=== PATIENT | female | born 1965 | race African-American/Black ===

== ENCOUNTER 2017-04-20 14:50 | Emergency (ER) | payer MEDICARE ==
[2017-04-20 15:16] LABS: #Lymphocytes 1.1 thou/uL (1.20-3.40); #Monocytes 0.4 thou/uL (0.11-0.59); #Neutrophils 1.7 thou/uL (1.40-6.50); %Basophils 0.5 % (0.0-1.0); %Eosinophils 0.5 % (0.0-10.0); %Lymphocytes 34.8 % (21.0-51.0); %Monocytes 13.2 % (0.0-10.0); Hemoglobin 12.8 g/dL (12.0-16.0); Mean Corpuscular HGB CONC 32.6 g/dL (32.0-36.0); Platelet Count 142 thou/uL (130-400); RBC Distribution Width 12.3 % (11.5-14.5); Red Blood Cell (RBC) Count 4.43 mill/uL (4.20-5.40); White Blood Cell (WBC) Count 3.3 thou/uL (4.8-10.8)
--- NOTE | 2017-04-20 15:32 | RAD ---
FRONTAL VIEW CHEST: Comparison: 04-03-16 Indication: Chest pain. FINDINGS: Cardiac silhouette is stable. Left sided AICD is again seen. There is patchy bilateral perihilar opac ification which may be on the basis of edema. No significant effusion or discrete pneumothorax. IMPRESSION: Findings favoring a mild degree of edema, that may reflect changes of CHF. Correlate clinically. POS: [facility]
[2017-04-20 15:37] LABS: ALT (SGPT) 18 U/L (8-55); AST (SGOT) 35 U/L (5-34); Alkaline Phosphatase 80 U/L (40-150); Anion Gap 13 mmol/L (10-20); BUN (Urea Nitrogen) 11 mg/dL (9.8-20.1); Bilirubin, Total 0.3 mg/dL (0.2-1.2); CK (CPK) 762 U/L (29-168); Calc. Creatinine Clearance 0 mL/min (70-130); Calcium 9.5 mg/dL (7.8-10.44); Carbon Dioxide 27 mmol/L (22-29); Chloride 99 mmol/L (98-107); Estimated GFR-MDRD 75; Globulin 3.6 g/dL (2.4-3.5); Glucose 125 mg/dL (70-105); Lipase 20 U/L (8-78); Potassium 4.2 mmol/L (3.5-5.1); Protein, Total 7.6 g/dL (6.0-8.3); Sodium 135 mmol/L (136-145)
[2017-04-20 15:42] LABS: CKMB 1.3 ng/mL (0-6.6); Troponin I 0.022 ng/mL (< 0.028)
[2017-04-20] MEDS ORDERED: predniSONE 20 MG TAB ONE (16:17)
[2017-04-20] MEDS ORDERED: Furosemide 40 MG/4 ML VIAL ONE (16:17)
[2017-04-20] MEDS ORDERED: Albuterol Sulfate 2.5 mg/0.5 ml Neb ONE (16:29)
[2017-04-20] MEDS ORDERED: Albuterol Sulfate 2.5 mg/3 ml Neb ONE (16:29)
[2017-04-20] MEDS ORDERED: Acetaminophen 500 MG TAB ONE (17:30)
[2017-04-20] MEDS ORDERED: Ketorolac Tromethamine 30 MG/ML VIAL ONE (17:58)
== END 2017-04-20 18:38 | disposition home or self-care (01) ==
LOC: ERS 14:50
DX: J10.1 Influenza due to other identified influenza virus with other respiratory manifestations (principal); I50.9 Heart failure, unspecified; I10 Essential (primary) hypertension; J45.909 Unspecified asthma, uncomplicated; F41.9 Anxiety disorder, unspecified; F17.210 Nicotine dependence, cigarettes, uncomplicated; Z79.899 Other long term (current) drug therapy; Z79.84 Long term (current) use of oral hypoglycemic drugs
CPT/HCPCS: 71045; 80053; 82553; 83690; 83880; 84484; 85025; 93005; 94640; 94760; 96372; 96374; 99406; J1885; J1940; J7506; J7611

== ENCOUNTER 2018-01-05 12:29 | Emergency (ER) | payer MEDICARE | END 2018-01-05 13:12 | disposition home or self-care (01) | LOC: ERS 12:29 | DX: J39.2 Other diseases of pharynx (principal); I11.0 Hypertensive heart disease with heart failure; I50.9 Heart failure, unspecified; J44.9 Chronic obstructive pulmonary disease, unspecified; F41.9 Anxiety disorder, unspecified; F17.210 Nicotine dependence, cigarettes, uncomplicated; Z79.899 Other long term (current) drug therapy; Z79.84 Long term (current) use of oral hypoglycemic drugs | CPT/HCPCS: 99283 ==

== ENCOUNTER 2018-02-06 16:11 | Outpatient (CLI) | payer MEDICARE | END 2018-02-06 16:12 | disposition home or self-care (01) | LOC: BICMAMMO 16:11 | PROVIDERS: ATTEND Family Medicine | DX: Z12.31 Encounter for screening mammogram for malignant neoplasm of breast (principal); Z85.3 Personal history of malignant neoplasm of breast; Z80.3 Family history of malignant neoplasm of breast | CPT/HCPCS: 77063; 77067 ==

== ENCOUNTER 2018-07-11 08:23 | Observation (INO) | payer MEDICARE ==
--- NOTE | 2018-07-11 08:50 | RAD ---
EXAM: Chest Two Views 07/11/2018 8:46 AM HISTORY: Chest pain COMPARISON: February 11, 2012 FINDINGS: Heart: Normal in size and contour. Pulmonary vessels: Normal. Costophrenic angles: Clear. Lungs: There is patchy airspace opacity within the left lower lobe suspicious for pneumonia. Right becca ng is clear. Pneumothorax: None. Osseous structures:Intact. Additional findings: None. IMPRESSION: Patchy airspace opacity within the left lower lobe. Findings suspicious for pneumonia. Recommend radi ographic follow-up to resolution.
[2018-07-11 09:13] LABS: ALT (SGPT) 7 U/L (8-55); AST (SGOT) 8 U/L (5-34); Albumin 3.9 g/dL (3.5-5.0); Alkaline Phosphatase 110 U/L (40-150); Anion Gap 11 mmol/L (10-20); BUN (Urea Nitrogen) 10 mg/dL (9.8-20.1); Bilirubin, Total 0.4 mg/dL (0.2-1.2); CK (CPK) 68 U/L (29-168); Calc. Creatinine Clearance 0 mL/min (70-130); Calcium 9.7 mg/dL (7.8-10.44); Carbon Dioxide 29 mmol/L (22-29); Chloride 103 mmol/L (98-107); Estimated GFR-MDRD 86; Globulin 2.9 g/dL (2.4-3.5); Glucose 156 mg/dL (70-105); Potassium 4.2 mmol/L (3.5-5.1); Protein, Total 6.8 g/dL (6.0-8.3); Sodium 139 mmol/L (136-145)
[2018-07-11 09:14] LABS: #Basophils 0.1 thou/uL (0.0-0.2); #Eosinphils 0.2 thou/uL (0.0-0.7); #Lymphocytes 2.1 thou/uL (1.20-3.40); #Monocytes 0.4 thou/uL (0.11-0.59); #Neutrophils 2.7 thou/uL (1.40-6.50); %Basophils 1.1 % (0.0-1.0); %Eosinophils 3.6 % (0.0-10.0); %Lymphocytes 39.3 % (21.0-51.0); %Monocytes 6.4 % (0.0-10.0); %Neutrophils 49.5 % (42.0-75.0); Hemoglobin 12.2 g/dL (12.0-16.0); Mean Corpuscular HGB CONC 31.5 g/dL (32.0-36.0); Mean Corpuscular Hemoglobin 27.5 pg (27.0-31.0); Mean Corpuscular Volume 87.5 fL (78.0-98.0); Mean Platelet Volume 8.1 fL (7.4-10.4); Platelet Count 207 thou/uL (130-400); RBC Distribution Width 12.2 % (11.5-14.5); Red Blood Cell (RBC) Count 4.45 mill/uL (4.20-5.40); White Blood Cell (WBC) Count 5.4 thou/uL (4.8-10.8)
[2018-07-11] MEDS ORDERED: Aspirin Chewable 81 MG TAB ONE (09:43)
[2018-07-11] MEDS ORDERED: Morphine 4 MG/ML VIAL ONE (10:04)
[2018-07-11] MEDS ORDERED: hydrALAZINE 20 MG/ML VIAL SLOW IVP PRN (10:09)
[2018-07-11] MEDS ORDERED: Benzonatate 100 MG CAP PO PRN (10:09)
[2018-07-11] MEDS ORDERED: Bisacodyl 5 MG TAB PO PRN (10:09)
[2018-07-11] MEDS ORDERED: Calcium Carbonate 500 MG ChewTAB PO PRN (10:09)
[2018-07-11] MEDS ORDERED: Senokot S 8.6-50 MG TAB PO PRN (10:09)
[2018-07-11] MEDS ORDERED: Nitroglycerin 0.4 MG TAB (25 Tab Bottle) SL PRN (10:09)
[2018-07-11] MEDS ORDERED: Acetaminophen 325 MG TAB PO PRN (10:09)
[2018-07-11] MEDS ORDERED: HYDROcodone/Acetaminophen 5/325 mg Tablet PO PRN (10:09)
[2018-07-11] MEDS ORDERED: cloNIDine 0.1 MG TAB PO PRN (10:09)
[2018-07-11] MEDS ORDERED: Ondansetron PF 4 MG/2 ML Vial IVP PRN (10:09)
[2018-07-11] MEDS ORDERED: cefTRIAXone\\ROCEPHIN 1 GM VIAL ONE (10:13)
[2018-07-11] MEDS ORDERED: Azithromycin 500 MG VIAL ONE (10:13)
[2018-07-11] MEDS ORDERED: Sodium Chloride 0.9% 1,000 ML IV SCH (10:15)
[2018-07-11] MEDS ORDERED: Dextrose 5% in Water 1,000 ML IV PRN (10:18)
[2018-07-11] MEDS ORDERED: HumaLOG 300 UNITS/3 ML VIAL SC PRN ×2 (10:18)
[2018-07-11] MEDS ORDERED: Dextrose 50% Abboject 50 ML SYRINGE SLOW IVP PRN (10:18)
[2018-07-11 10:44] LABS: Bilirubin Small (Negative); Blood, Urine Negative (Negative); Clarity CLEAR (Clear); Glucose, Urine (Dipstick) Negative (Negative); Leukocyte Negative (Negative); Nitrite Negative (Negative); Protein, Urine (Dipstick) Trace mg/dL (Neg-Trace); Specific Gravity, Urine 1.027 (1.002-1.036)
[2018-07-11 10:47] LABS: Cardiac Risk 5.1 (Less than 4.5)
[2018-07-11] MEDS ORDERED: Furosemide 40 MG/4 ML VIAL SLOW IVP SCH (11:00)
[2018-07-11] MEDS ORDERED: Carvedilol 25 MG TAB PO SCH (11:00)
[2018-07-11 12:05] LABS: Troponin I Less than 0.010 ng/mL (< 0.028)
--- NOTE | 2018-07-11 12:20 | HP ---
PRIMARY CARE PHYSICIAN: Dr. Chavez. CHIEF COMPLAINT: Generalized malaise, weakness, chest pain, dysuria, frequency, as well as exertional mild shortness of breath, and shoulder pain. HISTORY OF PRESENTING ILLNESS: Ms. Devine is a pleasant 52-year-old female with past medical history of nonischemic cardiomyopathy, status post AICD placement, as well as history of asthma and chronic systolic heart failure and hypertension and history of breast cancer, who presented to the emergency room with above-mentioned complaint. History is mainly obtained by the patient herself and electronic medical records have been reviewed. Case has been discussed with admitting ER physician, Dr. Alberto. Ms. Devine reports that for the last week or so, she has been not feeling herself. She has been experiencing some generalized malaise and started to have some chest discomfort last 2 days ago. She has also been experiencing some shortness of breath associated with it as well as nausea and cough. She also started to have some shoulder pain bilaterally yesterday. She follows up with Dr. Becerra yearly and has had a stress test last year. She denies any sick contacts, but one of her grandson had a strep throat multiple weeks ago. She also complains of pain with micturition and frequency. She denies any specific smell or color to her urine. She denies any specific complaints of vomiting or diarrhea or abdominal pain. She does complain of some pain on both of her sides in the lower back coming to her front somewhat. Upon presentation to the emergency room, she was hemodynamically stable. Blood pressure 140/90, respirations 14, temperature 98.2, pulse of 60, saturating 100% on room air. She had a 12-lead EKG done, which shows chronic T-wave inversions in lead IV without any acute changes. Her chest x-ray, however, was suggestive of left lower lobe infiltrate. Cardiac enzymes were done and troponin was less than 0.010. BNP was normal. She is now being admitted for ACS rule out and treatment for the pneumonia. There is no evidence of sepsis. PAST MEDICAL HISTORY: 1. Nonischemic cardiomyopathy, status post AICD placement. Reported EF around 15% to 20%. 2. History of reactive chronic bronchitis versus asthma. 3. History of chronic systolic congestive heart failure. 4. Hypertension. 5. History of breast cancer. PAST SURGICAL HISTORY: 1. Left lumpectomy. 2. Lymph node removal from left arm. 3. Defibrillator placement. 4. Cardiac catheterization. 5. MediPort placement and removal. 6. Tubal ligation. PAST PSYCHIATRIC HISTORY: Anxiety disorder. SOCIAL HISTORY: No history of drug, tobacco, or alcohol abuse. FAMILY HISTORY: No significant family history of coronary artery disease, stroke, or cancer. ALLERGIES: NO KNOWN MEDICATION ALLERGIES. HOME MEDICATIONS: As listed in the ER records; 1. Carvedilol 25 mg p.o. b.i.d. 2. Lisinopril 20 mg p.o. b.i.d. 3. Lasix 40 mg daily. 4. Advair. 5. Albuterol. 6. Metformin 500 p.o. b.i.d. 7. Carafate unknown dose. 8. Protonix 40 mg p.o. b.i.d. REVIEW OF SYSTEMS: A 14-point review of system is done. It is negative except for those mentioned in the history and physical. LABORATORY DATA: Her CBC is unremarkable. Serum chemistry unremarkable. Blood sugar 156. Troponin less than 0.010. Creatine kinase normal. BNP normal. Lipid panel normal. Urinalysis shows small bilirubin, otherwise negative for leukocyte esterase. Chest x-ray by my review shows a small left lower lobe density, possibly infiltrate without any edema. A 12-lead EKG by my review shows normal sinus rhythm with normal ST segments and T-waves inverted in leads V4. Heart rate 71 beats per minute. PHYSICAL EXAMINATION: VITAL SIGNS: Most recent vital signs; blood pressure 140/87, pulse of 67, respirations 16, saturating 100% on room air, temperature 98.2. GENERAL: No acute distress. Awake, alert, and oriented x3. HEENT: Mucous membrane is moist and pink. No oropharyngeal exudate or erythema. Head is normocephalic and atraumatic. Pupils are equal and reactive to light and accommodation. Extraocular movement intact. NECK: Supple without any lymphadenopathy, JVD, or bruit. CHEST: Clear to auscultation without any wheezing, rales, or rhonchi. HEART: Rate and rhythm are regular without any murmurs, rubs, or gallops. ABDOMEN: Soft, nontender, nondistended with positive bowel sounds. EXTREMITIES: Free of any cyanosis, clubbing, or edema. She does have some varicose vein in legs and is wearing compression stockings. NEUROLOGICAL: Nonfocal. SKIN: Free of any rashes or bruises. Feels warm and dry to touch. PSYCHIATRIC: Normal affect. IMPRESSION AND PLAN: 1. Left lower lobe pneumonia, most likely this is the reason for the patient's chest pain also. She was given Rocephin and azithromycin in the emergency room. She is not hypoxic. We will continue the antibiotics for now and add supportive care in the form of nebulizers as needed as well as Mucinex b.i.d. and incentive spirometry. The patient has no evidence to suggest sepsis. 2. Chest pain. This is most likely secondary to #1. However, given the patient's extensive cardiac history, we will obtain a nuclear medicine stress test and continue to trend serial cardiac enzymes. AICD would also be interrogated. 3. Diabetes mellitus. The patient is non-insulin dependent. At this time, we will hold the metformin to avoid acidosis or renal injury. We will add insulin sliding scale with frequent Accu-Cheks. 4. Hypertension. We will restart Coreg 25 b.i.d., lisinopril 20 mg b.i.d., though the dose is not confirmed, as well as continuation of Lasix 40 mg p.o. daily. 5. Chronic systolic congestive heart failure. She is stable and compensated. We will restart medications including beta benjamin, EVERETTE inhibitor, and Lasix. She [facility] with [facility] in the outpatient setting. 6. Nonischemic cardiomyopathy, status post AICD placement, stable. We will restart her EVERETTE inhibitor, beta blockers, and Lasix. 7. History of bronchitis and/or asthma. Resume Advair and add nebulizers as needed. Appears stable at this time. 8. Add DVT and GI prophylaxis. DISPOSITION: Ms. Devine is currently being admitted for chest pain workup and treatment for pneumonia. ACS will be ruled out. Estimated length of stay at this time is less than two midnights. Further management will depend upon her clinical course. Job ID: [id number]
[2018-07-11 15:04] LABS: Troponin I Less than 0.010 ng/mL (< 0.028)
[2018-07-11 17:18] VITALS: BMI 34.4
[2018-07-11] MEDS: Carvedilol 25 MG TAB PO SCH (17:46)
[2018-07-11] MEDS: Mometasone/Formoterol 120 PUFF INHALER INH SCH ×2 (17:55→19:13)
[2018-07-11] MEDS: Famotidine/PF 20 mg/2ml Vial SLOW IVP SCH (19:52)
[2018-07-11] MEDS: guaiFENesin ER 600 MG TAB PO SCH (19:52)
[2018-07-12] MEDS: Mometasone/Formoterol 120 PUFF INHALER INH SCH (06:31)
[2018-07-12] MEDS ORDERED: cefTRIAXone\\ROCEPHIN 1 GM in Sodium Chloride 0.9% 100 ML IVPB SCH (07:00)
[2018-07-12 07:12] LABS: Anion Gap 11 mmol/L (10-20); BUN (Urea Nitrogen) 12 mg/dL (9.8-20.1); Calc. Creatinine Clearance 151 mL/min (70-130); Calcium 9.3 mg/dL (7.8-10.44); Carbon Dioxide 29 mmol/L (22-29); Chloride 103 mmol/L (98-107); Estimated GFR-MDRD Greater than 90; Glucose 126 mg/dL (70-105); Potassium 4.3 mmol/L (3.5-5.1); Sodium 139 mmol/L (136-145)
[2018-07-12] MEDS ORDERED: Furosemide 40 MG TAB PO SCH (07:30)
[2018-07-12] MEDS ORDERED: Aspirin 325 mg Enteric Coated Tablet PO SCH (09:00)
[2018-07-12] MEDS ORDERED: Regadenoson 0.4 MG/5 ML SYRINGE ONE (11:23)
[2018-07-12] MEDS: Azithromycin 500 MG in Sodium Chloride 0.9% 250 ML 250 ML IVPB SCH ×2 (11:38→11:54)
[2018-07-12] MEDS: Enoxaparin Sodium 40 MG/0.4 ML SYRINGE SC SCH ×2 (11:39→11:55)
[2018-07-12] MEDS: guaiFENesin ER 600 MG TAB PO SCH (11:39)
[2018-07-12] MEDS: Famotidine/PF 20 mg/2ml Vial SLOW IVP SCH (11:39)
[2018-07-12] MEDS: Carvedilol 25 MG TAB PO SCH (11:47)
--- NOTE | 2018-07-12 11:51 | NM ---
EXAM: Nuclear medicine cardiac SPECT with EF and wall motion: HISTORY: Chest pain Protocol: Exam was performed using Lexiscan protocol. Patient was injected with 32.0 mCi technetium 99m sestamibi intravenously for stress images. Patient was injected with 27.0 mCi technetium 99m sestamibi intravenously for resting images. Multiple SPECT images are performed in the short axis, vertical long axis, and horizontal long axis. FINDINGS: No scan evidence for infarct or ischemia. TID:1.07 LHR:0.35 EDV:217 mL EF:42% Wall motion:Mild hypokinesis IMPRESSION: No scan evidence for infarct or ischemia. Elevated EDV. Ejection fraction 42%. Very mild generalized hypokinesis.
[2018-07-12 11:53] VITALS: BP 145/80; TEMP 98.3
[2018-07-12] MEDS ORDERED: Doxycycline 100 MG CAP PO SCH ×2 (12:30→21:00)
--- NOTE | 2018-07-12 22:34 | DIS ---
DATE OF ADMISSION: 07/11/2018 DATE OF DISCHARGE: 07/12/2018 DISCHARGE DISPOSITION: Home. FOLLOWUP: 1. Follow up with primary care physician, Dr. Chavez, in 1 week. 2. Follow up with Dr. Noé Becerra as scheduled. ALLERGIES: NO KNOWN DRUG ALLERGIES. THE PATIENT WAS SEEN AND EXAMINED ON THE DAY OF DISCHARGE. DENIES ANY NEW COMPLAINTS. NO CHEST PAIN, SHORTNESS OF BREATH, OR PALPITATIONS REPORTED. OVERALL, SYMPTOMATICALLY, SHE FEELS MUCH BETTER. DISCHARGE MEDICATIONS: 1. Omnicef 300 mg b.i.d. for 1 week. 2. Doxycycline 100 mg b.i.d. for 1 week. 3. Protonix 40 mg daily. 4. Sucralfate 1 g twice daily. 5. Aspirin 81 mg daily. 6. Metformin 500 mg daily. 7. Lisinopril 20 mg b.i.d. 8. Lasix 40 mg daily. 9. Carvedilol 25 mg b.i.d. INPATIENT NURSING CARE PARTNER: None. BRIEF HOSPITAL COURSE: The patient is a 52-year-old female with chronic heart failure secondary to nonischemic cardiomyopathy, status post AICD, presented to the emergency room with chest discomfort along with generalized weakness and shoulder pain. Please refer to the history and physical by Dr. Bautista for further details. The patient was admitted to the hospital with a diagnosis of chest discomfort along with suspected pneumonia. The chest x-ray showed left lower lobe infiltrate. She underwent a Cardiolite stress that was negative for reversible ischemia. Ejection fraction was 42%. She was started on IV antibiotics that has been changed to oral. She appears stable for discharge. FINAL DIAGNOSES: 1. Chest discomfort, acute coronary syndrome ruled out. 2. No reversible ischemia on the stress. 3. Left lower lobe infiltrate, consistent with pneumonia, suspected pneumococcal. 4. Chronic systolic heart failure, status post automatic implantable cardioverter-defibrillator. 5. Nonischemic cardiomyopathy. 6. Normal coronaries in 2013 cardiac cath. 7. Hypertension. 8. History of breast cancer. 9. Obesity with a BMI of 34. 10. Chronic kidney disease, stage 2. SIGNIFICANT LABORATORY DATA: LDL 129, HDL 37, cholesterol 190, and triglyceride 118. Troponins were negative. Job ID: [id number]
== END 2018-07-12 16:05 | disposition home or self-care (01) ==
LOC: ERS 08:23 → ERHOLD 10:27 → 2SW 16:51
PROVIDERS: ADMIT Internal Medicine; ATTEND Internal Medicine
DX: R07.89 Other chest pain (principal); R06.02 Shortness of breath; R53.1 Weakness; M25.519 Pain in unspecified shoulder; R30.0 Dysuria; R35.0 Frequency of micturition; I42.8 Other cardiomyopathies; J45.909 Unspecified asthma, uncomplicated; F41.9 Anxiety disorder, unspecified; I13.0 Hypertensive heart and chronic kidney disease with heart failure and stage 1 through stage 4 chronic kidney disease, or unspecified chronic kidney disease; E11.22 Type 2 diabetes mellitus with diabetic chronic kidney disease; N18.2 Chronic kidney disease, stage 2 (mild); I50.22 Chronic systolic (congestive) heart failure; E66.9 Obesity, unspecified; Z68.34 Body mass index [BMI] 34.0-34.9, adult; Z79.82 Long term (current) use of aspirin; Z79.84 Long term (current) use of oral hypoglycemic drugs; Z79.899 Other long term (current) drug therapy; Z95.810 Presence of automatic (implantable) cardiac defibrillator; Z85.3 Personal history of malignant neoplasm of breast
CPT/HCPCS: 71046; 78452; 80048; 80053; 80061; 81003; 82550; 82962 ×2; 83880; 84484 ×2; 85025; 93005; 93017; 94640 ×2; 94760; 96365; 96366; 96367; 96375 ×2; 96376; 97139; 99285; A9500; G0378 ×2; 36415; 36416; J0456; J0696; J1650; J2270; J2785; J3490; J7050; S0028

== ENCOUNTER 2018-07-26 08:33 | Outpatient (CLI) | payer MEDICARE ==
--- NOTE | 2018-07-26 09:22 | RAD ---
CHEST 2 VIEWS: HISTORY: Pneumonia, history of congestive heart failure. COMPARISON: 07/11/2018. Left ICD. Borderline cardiomegaly. No confluent pneumonia, overt edema, or pleural effusion. IMPRESSION: Borderline cardiomegaly. Left implantable cardioverter defibrillator. Atherosclerosis of the aorta. Stable from prior study. POS: [facility]
== END 2018-07-26 08:34 | disposition home or self-care (01) ==
LOC: BICRAD 08:33
PROVIDERS: ATTEND Family Medicine
DX: J18.9 Pneumonia, unspecified organism (principal); I51.7 Cardiomegaly; I70.0 Atherosclerosis of aorta; Z95.810 Presence of automatic (implantable) cardiac defibrillator
CPT/HCPCS: 71046

== ENCOUNTER 2019-02-12 11:57 | Outpatient (CLI) | payer MEDICARE ==
--- NOTE | 2019-02-12 12:36 | MMO ---
Bilateral MAMMO Bilat Screen [facility]. CLINICAL HISTORY: Patient is 53 years old and is seen for screening. The patient has no family history of breast cancer. The patient has no personal history of cancer. The patient has a history of left Lumpectomy in 2000 - POSITIVE FOR MALIGNANCY. VIEWS: The views performed were: bilateral craniocaudal with tomosynthesis and bilateral mediolateral oblique with tomosynthesis. FILMS COMPARED: The present examination has been compared to prior imaging studies performed at [facility] on 10/14/2014, 01/30/2016, 01/28/2017 and 02/06/2018. This study has been interpreted with the assistance of computer-aided detection. MAMMOGRAM FINDINGS: There are scattered fibroglandular densities. There are stable post operative changes seen in the left breast. There are no suspicious masses, suspicious calcifications, or new areas of architectural distortion. IMPRESSION: THERE IS NO MAMMOGRAPHIC EVIDENCE OF MALIGNANCY. A ROUTINE FOLLOW-UP MAMMOGRAM IN 1 YEAR IS RECOMMENDED. THE RESULTS OF THIS EXAM WERE SENT TO THE PATIENT. ACR BI-RADS Category 2 - Benign finding MAMMOGRAPHY NOTE: 1. A negative mammogram report should not delay a biopsy if a dominant of clinically suspicious mass is present. 2. Approximately 10% to 15% of breast cancers are not detected by mammography. 3. Adenosis and dense breasts may obscure an underlying neoplasm. Reported by: CHRISTIANO HATHAWAY MD Electonically Signed: [id number]
== END 2019-02-12 11:58 | disposition home or self-care (01) ==
LOC: BICMAMMO 11:57
PROVIDERS: ATTEND Family Medicine
DX: Z12.31 Encounter for screening mammogram for malignant neoplasm of breast (principal); Z98.890 Other specified postprocedural states
CPT/HCPCS: 77063; 77067

== ENCOUNTER 2019-02-13 08:05 | Day surgery (SDC) | payer MEDICARE ==
[2019-02-12 17:49] VITALS: BMI 35.1
--- NOTE | 2019-02-13 14:34 | OP ---
DATE OF PROCEDURE: 02/13/2019 PROCEDURE PERFORMED: Colonoscopy (screening). INDICATIONS FOR PROCEDURE: Screening for malignant neoplasm of the colon, family history of colon cancer (grandmother diagnosed in her mid 70s). DESCRIPTION OF PROCEDURE: After the risks and benefits of the procedure were explained to the patient including risks of bleeding, infection, perforation, reactions to anesthesia, aspiration, and/or pain, informed consent was obtained. The patient was then taken to the endoscopy suite, where she was placed in the left lateral decubitus prior to deep sedation with propofol via anesthesia support. Once adequate sedation was achieved, a digital rectal examination was performed followed by introduction of the standard colonoscope, which was advanced to the terminal ileum with some difficulty, but was amenable to reduction of the scope to facilitate passage into the terminal ileum/cecum. The quality of the prep was excellent. The patient tolerated the procedure well with no immediate perioperative complications. Upon conclusion of the procedure, the patient was transferred to Day Stay in satisfactory condition. FINDINGS: Digital rectal exam: Small perianal skin tags were seen on external examination. Colon findings: Normal-appearing mucosa was seen within the terminal ileum as well as at the ileocecal valve and appendiceal orifice. Normal-appearing mucosa was then seen at the cecum, ascending colon, transverse colon, descending colon, sigmoid colon, and rectum. Small internal hemorrhoids were seen on rectal retroflexion without any evidence of bleeding. IMPRESSION: 1. Small internal hemorrhoids. 2. Perianal skin tags. 3. Otherwise normal colonoscopy. RECOMMENDATIONS: 1. We would recommend a higher fiber diet given the presence of hemorrhoids on exam t. 2. Continue current medications. 3. We would recommend a repeat colonoscopy in 10 years for screening for malignant neoplasm of the colon. 4. Follow up in the GI clinic as needed. Job ID: [id number]
[2019-02-13] MEDS ORDERED: PROPOFOL 200 MG/20 ML VIAL ONE (15:09)
[2019-02-13] MEDS ORDERED: Lidocaine 1% PF 5 ML VIAL ONE (15:09)
== END 2019-02-13 11:49 | disposition home or self-care (01) ==
LOC: SDC 08:05
PROVIDERS: ATTEND Internal Medicine
PROC: 0DJD8ZZ Inspection of Lower Intestinal Tract, Via Natural or Artificial Opening Endoscopic (ICD-10-PCS; principal; 2019-02-13)
DX: Z12.11 Encounter for screening for malignant neoplasm of colon (principal); K64.4 Residual hemorrhoidal skin tags; K64.8 Other hemorrhoids; I10 Essential (primary) hypertension; I42.9 Cardiomyopathy, unspecified; F17.210 Nicotine dependence, cigarettes, uncomplicated; F41.9 Anxiety disorder, unspecified; J45.909 Unspecified asthma, uncomplicated; E11.9 Type 2 diabetes mellitus without complications; E55.9 Vitamin D deficiency, unspecified; Z80.0 Family history of malignant neoplasm of digestive organs; Z79.84 Long term (current) use of oral hypoglycemic drugs; Z79.899 Other long term (current) drug therapy; Z95.810 Presence of automatic (implantable) cardiac defibrillator
CPT/HCPCS: J2001; J2704

== ENCOUNTER 2021-06-25 08:38 | Outpatient (CLI) | payer MEDICARE | END 2021-06-25 08:39 | disposition home or self-care (01) | LOC: BICMAMMO 08:38 | PROVIDERS: ATTEND Family Medicine | DX: Z12.31 Encounter for screening mammogram for malignant neoplasm of breast (principal); Z85.3 Personal history of malignant neoplasm of breast; Z98.890 Other specified postprocedural states | CPT/HCPCS: 77063; 77067 ==

== ENCOUNTER 2021-12-29 10:36 | Outpatient (CLI) | payer MEDICARE | END 2021-12-29 10:37 | disposition home or self-care (01) | LOC: BICRAD 10:36 | PROVIDERS: ATTEND Family Medicine | DX: R05.9 Cough, unspecified (principal) | CPT/HCPCS: 71046 ==

== ENCOUNTER 2022-11-16 13:57 | Outpatient (CLI) | payer OTHER | END 2022-11-16 13:58 | disposition home or self-care (01) | LOC: BICMAMMO 13:57 | PROVIDERS: ATTEND Family Medicine | DX: Z12.31 Encounter for screening mammogram for malignant neoplasm of breast (principal); Z85.3 Personal history of malignant neoplasm of breast; Z98.890 Other specified postprocedural states | CPT/HCPCS: 77063; 77067 ==